=== PATIENT | female | born 1965 | race Caucasian/White ===

== ENCOUNTER 2016-05-28 22:30 | Emergency (ER) | payer BC ==
[~2016-05-28] VITALS: Ht 175.3 cm; Wt 75.0 kg
[~2016-05-28 22:30] MED LIST: AMITIZA 8MCG8 MCG PO; BUDEPRION XL300 MG PO; CHANTIX 1MG1 MG PO; LAMICTAL200 MG PO; SEROQUEL XR300 MG PO; ZYPREXA 5MG5 MG PO
[2016-05-28 23:41] VITALS: BP 141/99; PULSE 78; TEMP 97.6
== END 2016-05-28 23:40 | disposition home or self-care (01) ==
LOC: COL.ER 22:30
DX: S90.31XA Contusion of right foot, initial encounter (principal); W22.8XXA Striking against or struck by other objects, initial encounter